=== PATIENT | female | born 2000 | race Caucasian/White ===

== ENCOUNTER 2023-11-07 19:29 | Emergency (ER) | payer MEDICAID ==
[~2023-11-07] VITALS: Ht 167.6 cm; Wt 81.6 kg
[2023-11-07 19:40] VITALS: BP 132/77; PULSE 105; RESP 18; TEMP 97.7; O2SAT 98
[2023-11-07] MEDS: BACITRACIN OINT 500 UNITS/GM PKT TP STA (20:36)
[2023-11-07] MEDS: LIDOCAINE MPF 1% 10 MG/ML VIAL INJ ONE (20:37)
[2023-11-07] MEDS ORDERED: BACI-418 TP (20:54)
== END 2023-11-07 21:18 | disposition home or self-care (01) ==
LOC: MED 19:29
DX: S61.211A Laceration without foreign body of left index finger without damage to nail, initial encounter (principal); R03.0 Elevated blood-pressure reading, without diagnosis of hypertension; Z79.899 Other long term (current) drug therapy; W45.8XXA Other foreign body or object entering through skin, initial encounter; Y93.89 Activity, other specified; Y92.89 Other specified places as the place of occurrence of the external cause; Y99.8 Other external cause status
CPT/HCPCS: 12001; 90471; 90715; 99283; J2001